=== PATIENT | male | born 1960 | race Caucasian/White ===

== ENCOUNTER 2018-03-12 12:19 | Emergency (ER) | payer OTHER ==
[2018-03-12 12:31] VITALS: RESP 18
[2018-03-12] MEDS ORDERED: methylPREDNISolone 125 MG in Sodium Chloride 0.9% 50 ML IM STA (12:38)
[2018-03-12] MEDS ORDERED: MethylPREDNISolone 40 mg Vial IM ONE (12:44)
--- NOTE | 2018-03-12 12:51 | ED PDOC ---
HPI: Skin/Bite Injury Time Seen by Provider: 03/12/18 12:32 Chief Complaint (Nursing): Abnormal Skin Integrity Chief Complaint (Provider): Rash History Per: Patient History/Exam Limitations: no limitations Onset/Duration Of Symptoms: Days (x5) Current Symptoms Are (Timing): Still Present Additional Complaint(s): 58 year old male presents to the ED for evaluation of a rash. Patient states that after working in his yard five days ago, he developed a pruritic rash to his arm which progressively traveled to his neck and other arm. He reports using Mupirocin ointment without any relief. Otherwise, he denies fever or pain. PMD: none provided Past Medical History Reviewed: Historical Data, Nursing Documentation, Vital Signs Vital Signs: Last Vital Signs Temp 98 F 03/12/18 13:16 Pulse 72 03/12/18 13:16 Resp 18 03/12/18 13:16 BP 128/80 03/12/18 13:16 Pulse Ox 100 03/12/18 13:16 - Medical History PMH: HTN - Surgical History Other surgeries: SKIN GRAFT - Family History Family History: States: Unknown Family Hx - Social History Current smoker - smoking cessation education provided: No Alcohol: None Drugs: Denies - Home Medications Home Medications: Ambulatory Orders Medication Instructions Recorded Azithromycin [Zithromax] 250 mg PO DAILY #6 cap 10/12/14 Codeine Phos/Phenyleph HCl/P 5 ml PO Q6H #100 syr 10/12/14 [Phenergan Vc W/Codeine 120 ml] Clindamycin [Cleocin] 300 mg PO TID #21 cap 03/12/18 DiphenhydrAMINE [Benadryl] 50 mg PO Q6 PRN #30 cap 03/12/18 Methylprednisolone [Medrol Dose 4 mg PO DAILY #21 mg 03/12/18 Pack (21 tabs)] - Allergies Allergies/Adverse Reactions: Allergies Allergy/AdvReac Type Severity Reaction Status Date / Time Penicillins Allergy RASH Verified 03/12/18 12:33 Review of Systems ROS Statement: Except As Marked, All Systems Reviewed And Found Negative Constitutional: Negative for: Fever Skin: Positive for: Rash (pruritic rash to bilateral arms and neck, not painful) Physical Exam - Reviewed Nursing Documentation Reviewed: Yes Vital Signs Reviewed: Yes - Physical Exam Appears: Positive for: No Acute Distress Skin: Positive for: Rash (scattered erythematous maculopapular rash to bilateral arms and right neck, some in a linear array with one large erythematous patch on right forearm. no break in skin integrity or pustules.) - ECG O2 Sat by Pulse Oximetry: 98 (RA) Pulse Ox Interpretation: Normal Medical Decision Making Medical Decision Making: Time: 1238 Initial Impression: poison g[place], right forearm cellulitis Initial Plan: --Methylprednisolone 125 mg IM Scribe Attestation: Documented by Viky Bartlett acting as a scribe for Marv Pinto PA-C. Provider Scribe Attestation: All medical record entries made by the Scribe were at my direction and personally dictated by me. I have reviewed the chart and agree that the record accurately reflects my personal performance of the history, physical exam, medical decision making, and the department course for this patient. I have also personally directed, reviewed, and agree with the discharge instructions and disposition. Disposition - Clinical Impression Clinical Impression: Rhus dermatitis, Cellulitis - Patient ED Disposition Is Patient to be Admitted: No - Disposition Referrals: [facility] [Outside] Disposition: Routine/Home Disposition Time: 13:00 Condition: STABLE Additional Instructions: KAREEM GUERRERO, thank you for letting us take care of you today. Your provider was Brianne Stephenson MD and you were treated for RASH. The emergency medical care you received today was directed at your acute symptoms. If you were prescribed any medication, please fill it and take as directed. It may take several days for your symptoms to resolve. Return to the Emergency Department if your symptoms worsen, do not improve, or if you have any other problems. Please contact your doctor or call one of the physicians/clinics you have been referred to that are listed on the Patient Visit Information form that is included in your discharge packet. Bring any paperwork you were given at discharge with you along with any medications you are taking to your follow up visit. Our treatment cannot replace ongoing medical care by a primary care provider outside of the emergency department. Thank you for allowing the [facility] team to be part of your care today. If you had an X-Ray or CT scan: A Radiologist will review the ED reading if any change in treatment is needed we will contact you. If you had a blood, urine, or wound culture: It will take several days for the results, if any change in treatment is needed we will contact you. If you had an STI test: It will take 48 hours for the results. Please call after 1 week if you have not heard back. Prescriptions: Clindamycin [Cleocin] 300 mg PO TID #21 cap DiphenhydrAMINE [Benadryl] 50 mg PO Q6 PRN #30 cap PRN Reason: itching or rash Methylprednisolone [Medrol Dose Pack (21 tabs)] 4 mg PO DAILY #21 mg Instructions: Poison [place], Poison [place], Poison [place] (DC) Forms: [employer] (Urdu)
[2018-03-12 13:18] VITALS: BP 128/80; PULSE 72; TEMP 98
[2018-03-12 22:10] VITALS: O2SAT 98
== END 2018-03-12 13:25 | disposition home or self-care (01) ==
LOC: H.ER 12:19
DX: L23.7 Allergic contact dermatitis due to plants, except food (principal); L03.113 Cellulitis of right upper limb; I10 Essential (primary) hypertension; Z88.0 Allergy status to penicillin
CPT/HCPCS: 96372; 99283; J2920